=== PATIENT | female | born 1935 | race African-American/Black ===

== ENCOUNTER 2017-04-29 22:13 | Inpatient (IN) ==
[2017-04-29] MEDS ORDERED: SODIUM CHLORIDE 0.9% 500 ML IV STA (22:56)
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
[2017-04-29 23:31] LABS: Basophils % 0.4 % (0.0-0.8); Eosinophils # 0.1 10*3/uL (0.0-0.87); Hematocrit 41.3 VOL% (35.7-47.0); Hemoglobin 13.8 GM/DL (12.0-16.0); Immature Granulocytes % 0.4 %; Immature Granulocytes Absolute 0.03 #; Lymphocytes # 0.7 10*3/uL (1.4-4.0); Lymphocytes % 8.7 % (21.3-54.2); Mean Corpuscular HGB Conc 33.4 GM/DL (32-36); Mean Corpuscular Hemoglobin 29 PG (27-34); Mean Corpuscular Volume 86.2 FL (87-102); Mean Platelet Volume 11.1 FL (9.6-12.0); Monocytes # 0.6 10*3/uL (0.11-0.8); Monocytes % 7.2 % (1.7-12.7); Neutrophils # 6.3 10*3/uL (1.4-7.4); Neutrophils % 82.3 % (38.7-73.9); Platelet Count 163 T/CUMM (130-400); Red Blood Count 4.79 MC/CUMM (3.8-5.5); Red Cell Distribution Width 14.3 % (9.3-17.3); White Blood Count 7.7 T/CUMM (4-12)
[2017-04-29 23:56] LABS: Ammonia 24 UMOL/L (11-32)
[2017-04-30 00:04] LABS: Alanine Aminotransferase 14 U/L (13-56); Albumin 3.1 G/DL (3.4-5.0); Alkaline Phosphatase 86 U/L (45-117); Amylase 16 U/L (25-115); Aspartate Amino Transferase 14 U/L (0-37); Blood Urea Nitrogen 8 MG/DL (7-18); Calcium 8.7 MG/DL (8.5-10.1); Glucose 86 MG/DL (74-106); Osmolality,Calculated 271.7 MOS/KG (273-304); Potassium 2.8 MMOL/L (3.5-5.1); Sodium 138 MMOL/L (136-145); Troponin I Only < 0.015 NG/ML (0.00-0.045)
[2017-04-30] MEDS ORDERED: POTASSIUM BICARB EFFERVESCENT 25 MEQ TABLET PO ONE ×2 (00:23→00:42)
[2017-04-30] MEDS ORDERED: METOCLOPRAMIDE 10 MG/2 ML VIAL IV STA (00:32)
[2017-04-30] MEDS ORDERED: LEVOFLOXACIN INJ 750 MG in PREMIX 1 EACH IV STA (00:32)
[2017-04-30] MEDS ORDERED: ALBUTEROL/IPRATROPIUM 3 ML NEB RESP TX STA (00:32)
[2017-04-30] MEDS ORDERED: hydrALAZINE 20 MG/1 ML VIAL IV STA (00:36)
[2017-04-30] MEDS ORDERED: hydrALAZINE 20 MG/1 ML VIAL ONE (00:41)
[2017-04-30] MEDS ORDERED: METOCLOPRAMIDE 10 MG/2 ML VIAL ONE (00:41)
[2017-04-30] MEDS ORDERED: LEVOFLOXACIN INJ 150 ML IV ONE (00:41)
[2017-04-30 01:02] LABS: Apearance,Urine CLOUDY (Clear); Bacteria,Urine Few /HPF (Few); Bilirubin,Urine Negative (Negative); Blood, Urine Moderate mg/dL (Negative); Glucose,Urine (UA) Negative (Negative); Ketones,Urine Negative (Negative); Mucus,Urine Occasional /LPF (Occasional); Nitrite,Urine Negative (Negative); Protein,Urine Negative; RBC,Urine 4 /HPF (0-4); Squamous Epithelial Cell,Urine Occasional /HPF (0-10); Urine Color Yellow (Yellow); Urine Specific Gravity 1.011 (1.001-1.035); WBC,Urine 9 /HPF (0-6)
[2017-04-30] MEDS ORDERED: DILTIAZEM 50 MG/10 ML VIAL IV ONE (01:40)
[2017-04-30] MEDS ORDERED: DILTIAZEM 50 MG/10 ML VIAL IV STA (01:41)
[2017-04-30] MEDS ORDERED: DILTIAZEM 100 MG VIAL.ADD IV ONE (01:41)
[2017-04-30] MEDS ORDERED: SODIUM CHLORIDE 0.9% 100 ML IV ONE (01:42)
[2017-04-30] MEDS: DILTIAZEM INJ 100 MG in SODIUM CHLORIDE 0.9% 100 ML IV SCH (02:14)
[2017-04-30] MEDS ORDERED: ACETAMINOPHEN 325 MG TABLET PO PRN (02:15)
[2017-04-30] MEDS ORDERED: SODIUM CHLORIDE 0.9% 500 ML IV STA (02:22)
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
[2017-04-30] MEDS: cefTRIAXone 1,000 MG in SODIUM CHLORIDE 0.9% 100 ML IV SCH (05:30)
[2017-04-30 06:35] LABS: Calcium 8.8 MG/DL (8.5-10.1); Osmolality,Calculated 275.4 MOS/KG (273-304); Potassium 3.3 MMOL/L (3.5-5.1)
--- NOTE | 2017-04-30 07:14 | EKG Report ---
Stationary ECG Study [facility] ER Test Date: 04/29/2017 11:31:36 PM Pat Name: MARIBEL HUNT Department: Room: 276 Gender: F Chemical Operator: : [id number] Requested by: Otoniel Leigh Order Number: [id number] Reading MD: LINDA POP Intervals [place] Rate: 100 P: 999 [place]: 0 QRS: 35 QRSD: 93 T: 265 QT: 342 QTc: 399 Interpretive Statements ATRIAL FIBRILLATION WITH RAPID VENTRICULAR RESPONSE Electronically Signed On 05-01-17 15:54:29 CDT by LINDA POP [email or web address]
[2017-04-30] MEDS: ALBUTEROL/IPRATROPIUM 3 ML NEB RESP TX SCH ×4 (08:05→18:55)
[2017-04-30] MEDS: LACTULOSE 20 GM/30 ML UDCUP PO SCH ×2 (08:19→21:38)
[2017-04-30] MEDS: APIXABAN 2.5 MG TABLET PO SCH ×2 (08:19→21:38)
--- NOTE | 2017-04-30 08:22 | CT Report ---
CT head/brain wo con Indication: Altered mental status. Comparison: None. Technique: CT of the brain was performed without administration of intravenous contrast. The CT examination was performed using one or more of the following dose reduction techniques: Automatic exposure control, adjustment of the mA and kV according to patient size, use of acute or iterative reconstruction techniques. Findings: There is no evidence of acute intracranial mass, hemorrhage, or infarction. Generalized cerebral atrophy is present. Changes of atrophy are prominent. Areas of decreased attenuation within the periventricular white matter and cerebral white matter are present which could be compatible with microvascular ischemia. The basal cisterns are patent. No significant abnormality is demonstrated to involve the posterior fossa or cerebellum. Orbits and globes demonstrate no evidence of significant pathology. The paranasal sinuses are clear. No significant abnormality is demonstrated to involve the mastoid air cells. The calvarium and overlying soft tissues demonstrate no evidence of acute pathology. Impression: 1. No CT evidence of acute intracranial pathology. 2. Advanced generalized atrophy as well as findings compatible with microvascular ischemia are demonstrated. 04/30/2017 8:18 AM PROCEDURE INTERPRETED AT [facility] DEPARTMENT OF RADIOLOGY Final Report Signed by: Dr. Stefan Madera
--- NOTE | 2017-04-30 08:23 | XRay Report ---
XR abdomen 2V Indication: Abdominal pain. Comparison: Abdominal series 10/28/2012 Technique: Flat and erect images of the abdomen were performed. Findings: Lung bases are clear. Heart size is borderline to minimally enlarged. There is been prior cholecystectomy. No organomegaly is present. Gas is distributed throughout large and small bowel loops in nonspecific pattern. No extraluminal air is demonstrated. Bones and soft tissues are grossly unremarkable. Multiple calcifications noted bilaterally within the pelvis likely reflect phleboliths formation. If clinical concern for distal ureteral stone exists, correlation with urinalysis is recommended. Impression: 1. No specific abnormality of the bowel gas pattern is demonstrated. 2. Multiple punctate calcifications within the pelvis likely phlebolith formation. Distal ureteral stones would be difficult to exclude and correlation with urinalysis is recommended. 04/30/2017 8:19 AM PROCEDURE INTERPRETED AT [facility] DEPARTMENT OF RADIOLOGY Final Report Signed by: Dr. Stefan Madera
--- NOTE | 2017-04-30 08:24 | XRay Report ---
XR chest 1V portable Indication: Abdominal pain. Comparison: Chest x-ray 01/26/2015 Technique: Portable AP chest was performed. Findings: Heart size is minimally enlarged. Pulmonary vasculature appears within normal limits. No significant abnormality of the mediastinal contours demonstrated. [place] nodular density lower right chest was not present on comparison study. This measures up to 13.8 mm and may reflect bony lesion in the orientation and presents overlying posterior-lateral right ninth rib Lungs are otherwise clear. Bones and soft tissues demonstrate no significant abnormalities. Impression: 1. Mild cardiomegaly appears stable. 2. Focal density lower right chest overlying the posterior right ninth rib has different considerations including focal atelectasis, osseous lesion, or pulmonary nodule. PA/lateral chest x-ray is recommended for further evaluation. 04/30/2017 8:20 AM PROCEDURE INTERPRETED AT [facility] DEPARTMENT OF RADIOLOGY Final Report Signed by: Dr. Stefan Madera
[2017-04-30] MEDS: AZITHROMYCIN INJ 500 MG in SODIUM CHLORIDE 0.9% 250 ML IV SCH (08:26)
[2017-04-30] MEDS ORDERED: SULFAMETHOX/TRIMETHOPRIM 800-160 MG TABLET PO SCH (09:00)
--- NOTE | 2017-04-30 11:18 | Hospitalist Progress Note ---
Assessment and Plan - Time spent with patient Time spent with patient: Greater than 30 minutes (1) Atrial fibrillation with RVR Status: Acute Current Visit: Yes (2) Fecal impaction Status: Acute Current Visit: Yes (3) Pneumonia Status: Acute Assessment and plan: Start oral metoprolol and gradually wean off Cardizem infusion Ask cardiology to see in the morning. She is currently on oral anticoagulation, continue the same. Soapsuds enema to continue on to response. If this fails, will do D70 solution rectally. Continue empiric antibiotics for possible pneumonia. I discussed patient's status with daughter at bedside DVT prophylaxis: On active anticoagulation therapy. Current Visit: Yes Hospitalist: Subjective Interval history: Elderly woman admitted overnight for abdominal pain suspected to be due to constipation, also in atrial fibrillation which required cardioversion with IV Cardizem, rate has improved. She is currently on IV infusion Cardizem at a rate 5. Blood pressures are stable. No fever. Has had some bowel movement in response to soapsuds enema 1 I discussed with daughter at bedside. Exam - Constitutional Vitals: Period Temp Pulse Resp BP Sys/Lovelace Pulse Ox Last 24 Hr 97.6 F-99.7 F 62-168 16-20 98-176/56-133 95-100 General appearance: no acute distress Exam: General appearance: other (Patient appear chronically ill and lethargic) - Head Head exam: Present: normal inspection, normocephalic, atraumatic - Eye Eye exam: Present: EOMI Pupils: Present: ALEC - Respiratory Respiratory exam: Present: other. Absent: accessory muscle use (Equal air entry bilaterally with decreased sound at the bases bilaterally due to poor inspiratory effort) - Cardiovascular Cardiovascular exam: Present: irregular rhythm, tachycardia - GI/Abdominal GI/Abdominal exam: Present: normal bowel sounds, soft. Absent: distended, tenderness, rebound - Extremities Exam Extremities exam: Present: edema (Bilateral mild edema of lower extremities. Chronic skin changes from venous stasis) - Head Head exam: Present: normocephalic, atraumatic - Respiratory Respiratory exam: Present: clear to auscultation bilaterally. Absent: rales, rhonchi - Cardiovascular Cardiovascular exam: Present: irregular rhythm. Absent: JVD - GI/Abdominal GI/Abdominal exam: Present: hypoactive bowel sounds, soft. Absent: ascites, tenderness - Neurological Exam Neurological exam: Present: other (Unable to assess because of baseline mental status) - Psychiatric Psychiatric exam: Present: other (Unable to assess because of baseline mental status) - Skin Skin exam: Present: normal color, warm, dry Results - Labs CBC & BMP: 04/29/17 23:08 04/30/17 05:05 Lab Results: I have reviewed the past 24 hour labs Quality Measures - VTE Contraindication to Pharmacological VTE Prophylaxis: Already on Theraputic Agent , No Prophylaxis Needed
[2017-04-30] MEDS: METOPROLOL TARTRATE 25 MG TABLET PO SCH (21:36)
[2017-05-01] MEDS: DILTIAZEM INJ 100 MG in SODIUM CHLORIDE 0.9% 100 ML IV SCH (03:58)
[2017-05-01] MEDS: cefTRIAXone 1,000 MG in SODIUM CHLORIDE 0.9% 100 ML IV SCH (05:14)
[2017-05-01] MEDS: AZITHROMYCIN INJ 500 MG in SODIUM CHLORIDE 0.9% 250 ML IV SCH (05:30)
[2017-05-01] MEDS: ALBUTEROL/IPRATROPIUM 3 ML NEB RESP TX SCH ×4 (07:49→19:35)
[2017-05-01] MEDS: METOPROLOL TARTRATE 25 MG TABLET PO SCH (08:29)
[2017-05-01] MEDS: LACTULOSE 20 GM/30 ML UDCUP PO SCH ×2 (08:32→21:13)
[2017-05-01] MEDS: APIXABAN 2.5 MG TABLET PO SCH ×2 (08:32→21:13)
--- NOTE | 2017-05-01 09:29 | Hospitalist Progress Note ---
Assessment and Plan - Time spent with patient Time spent with patient: Greater than 30 minutes (1) Atrial fibrillation with RVR Status: Acute Current Visit: Yes (2) Fecal impaction Status: Acute Current Visit: Yes (3) Pneumonia Status: Acute Assessment and plan: Continue oral metoprolol and discontinue Cardizem infusion Ask cardiology to see. Continue her oral anticoagulation. Since no response to soapsuds enema we will repeat KUB to ensure that there is stool that requires evacuation. If KUB confirms constipation with stool impaction, will do D70 solution rectally. Continue Rocephin which will cover her acute cystitis due to gram-negative rods. I suspect her gram-positive bacteremia may be due to contamination but will be safe to start empiric vancomycin and repeat blood cultures. Discontinue if culture comes back negative Repeat blood cultures Supplement potassium, check BMP stat, check magnesium. I discussed patient's status with daughter at bedside DVT prophylaxis: On active anticoagulation therapy. Current Visit: Yes (4) Bacteremia due to Gram-positive bacteria Status: Acute Current Visit: Yes (5) Hypokalemia Status: Acute Current Visit: Yes (6) Cystitis Status: Acute Current Visit: Yes Hospitalist: Subjective Interval history: Gram-positive rods in urine greater than 100,000 CFU, identification and sensitivity is pending. Blood culture positive for gram-positive cocci culture and a 1 out of 2 positive , this may be contamination since she has no obvious features of sepsis. There has been no good response to enema so far, has been tolerating oral feeds. No abdominal pain or vomiting reported. No fever Mild hypokalemia from yesterday Exam - Constitutional Vitals: Period Temp Pulse Resp BP Sys/Lovelace Pulse Ox Last 24 Hr 96.9 F-98.4 F 67-97 14-20 98-165/61-80 92-100 Exam: General appearance: - Head Head exam: Present: normal inspection, normocephalic, atraumatic - Eye Eye exam: Present: EOMI Pupils: Present: ALEC - Respiratory Respiratory exam: Present: other. Absent: accessory muscle use (Equal air entry bilaterally with decreased sound at the bases bilaterally due to poor inspiratory effort) - Cardiovascular Cardiovascular exam: Present: irregular rhythm, tachycardia - GI/Abdominal GI/Abdominal exam: Present: normal bowel sounds, soft. Absent: distended, tenderness, rebound - Extremities Exam Extremities exam: Present: edema (Bilateral mild edema of lower extremities. Chronic skin changes from venous stasis) Results - Labs CBC & BMP: 04/29/17 23:08 04/30/17 05:05 Lab Results: I have reviewed the past 24 hour labs Quality Measures - VTE Contraindication to Pharmacological VTE Prophylaxis: Already on Theraputic Agent , No Prophylaxis Needed
--- NOTE | 2017-05-01 10:30 | XRay Report ---
XR KUB Indication: Constipation. Comparison: Flat and right images of the abdomen 04/30/2017. CT urogram 04/21/2017. Technique: Supine AP image of the abdomen was obtained. Findings: A distended gas-filled viscus within the central and right abdomen is demonstrated. There does appear to be air within the rectum and right hemicolon. This is favored to represent large bowel, probably redundant sigmoid colon. Surgical absence of the gallbladder is demonstrated. Small bowel gas pattern is nonspecific in appearance. Impression: 1. Compared to CT of abdomen and pelvis performed 04/21/2017, configuration of the sigmoid colon is unchanged. The sigmoid colon remains distended and now is filled with air. Bowel gas pattern is otherwise nonspecific in appearance and demonstrates no abnormality. 05/01/2017 10:25 AM PROCEDURE INTERPRETED AT [facility] DEPARTMENT OF RADIOLOGY Final Report Signed by: Dr. Stefan Madera
[2017-05-01] MEDS: VANCOMYCIN INJ 1,750 MG in SODIUM CHLORIDE 0.9% 500 ML IV SCH ×2 (10:33→23:38)
[2017-05-01 10:40] LABS: Calcium 8.6 MG/DL (8.5-10.1); Osmolality,Calculated 277.4 MOS/KG (273-304)
[2017-05-01] MEDS: POTASSIUM CHLORIDE 20 MEQ TABLET PO PRN ×4 (11:36→17:48)
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
[2017-05-01] MEDS: SOTALOL 80 MG TABLET PO SCH ×2 (13:40→21:13)
--- NOTE | 2017-05-01 16:54 | ECHO Report ---
Cachorro Moss Exam Date: 05/01/2017 13:20 Referring Physician: Technologist: Lanie Hall [facility] Age: 81 Ht (in): 62 Wt (lb): 270 Gender: F Exam Location: [facility] Echo Indications: Atrial fibrillation, Shortness of breath, Altered mental status, Weakness, Essential (primary) hypertension, Dementia, UTI BP: 127 / 85 HR: 102 Rhythm: Atrial fibrillation Technical Quality: Fair IMPRESSIONS Left ventricular ejection fraction is estimated at 55 %. Normal right ventricular size. Moderately increased right atrial size. Moderately increased left atrial size. Mildly thickened mitral valve. Trace mitral valve regurgitation. Aortic valve sclerosis. Trace aortic valve regurgitation. [id number] tricuspid valve regurgitation. [id number]. Pulmonic valve not well visualized. Normal pericardium without effusion. Normal ascending aorta dimension. MEASUREMENTS (Male / Female) Normal Values 2D ECHO LV Diastolic Diameter PLAX 3.4 cm 4.2 - 5.9 / 3.9 - 5.3 cm LV Systolic Diameter PLAX 2.6 cm LV Fractional Shortening PLAX 24.2 % IVS Diastolic Thickness 1.1 cm 0.6 - 1.0 / 0.6 - 0.9 cm LVPW Diastolic Thickness 1.1 cm 0.6 - 1.0 / 0.6 - 0.9 cm RV Internal Dim ED PLAX 2.8 cm Aortic Root Diameter 3.0 cm LA Systolic Diameter LX 4.8 cm 3.0 - 4.0 / 2.7 - 3.8 cm DOPPLER TR Peak Velocity 328.0 cm/s TR Peak Gradient 43.0 mmHg FINDINGS Left Ventricle . Left ventricular ejection fraction is estimated at 55 %. Right Ventricle Normal right ventricular size. Right Atrium Moderately increased right atrial size. Left Atrium Moderately increased left atrial size. Mitral Valve Mildly thickened mitral valve. Trace mitral valve regurgitation. Aortic Valve Aortic valve sclerosis. Trace aortic valve regurgitation. Tricuspid Valve Morphologically normal tricuspid valve. Parcrlnz-ca-[id number] tricuspid valve regurgitation. .[id number]. Pulmonic Valve Pulmonic valve not well visualized. Pericardium Normal pericardium without effusion. Aorta Normal ascending aorta dimension. Abhay Sevilla (Electronically Signed) Final Date: 01 May 2017 16:53
[2017-05-02 05:12] LABS: Basophils # 0.1 10*3/uL (0.0-0.2); Basophils % 0.6 % (0.0-0.8); Eosinophils # 0.2 10*3/uL (0.0-0.87); Eosinophils % 2.6 % (0.00-10.9); Hemoglobin 12.8 GM/DL (12.0-16.0); Immature Granulocytes % 0.4 %; Immature Granulocytes Absolute 0.03 #; Lymphocytes # 1.8 10*3/uL (1.4-4.0); Mean Corpuscular HGB Conc 32.8 GM/DL (32-36); Mean Corpuscular Hemoglobin 29 PG (27-34); Mean Corpuscular Volume 86.9 FL (87-102); Mean Platelet Volume 11.8 FL (9.6-12.0); Monocytes # 0.7 10*3/uL (0.11-0.8); Monocytes % 8.9 % (1.7-12.7); Neutrophils # 5.2 10*3/uL (1.4-7.4); Neutrophils % 65.5 % (38.7-73.9); Platelet Count 170 T/CUMM (130-400); Red Blood Count 4.49 MC/CUMM (3.8-5.5); Red Cell Distribution Width 14.6 % (9.3-17.3)
[2017-05-02] MEDS: AZITHROMYCIN INJ 500 MG in SODIUM CHLORIDE 0.9% 250 ML IV SCH (05:30)
[2017-05-02 05:43] LABS: Albumin 2.8 G/DL (3.4-5.0); Bilirubin,Total 1.3 MG/DL (0.2-1.0); Calcium 8.8 MG/DL (8.5-10.1); Osmolality,Calculated 276.4 MOS/KG (273-304); Potassium 3.6 MMOL/L (3.5-5.1); Total Protein 6.2 G/DL (6.4-8.3)
[2017-05-02] MEDS: cefTRIAXone 1,000 MG in SODIUM CHLORIDE 0.9% 100 ML IV SCH (05:49)
[2017-05-02] MEDS: ALBUTEROL/IPRATROPIUM 3 ML NEB RESP TX SCH ×4 (07:03→19:10)
[2017-05-02] MEDS: APIXABAN 2.5 MG TABLET PO SCH ×2 (09:12→21:46)
[2017-05-02] MEDS: LACTULOSE 20 GM/30 ML UDCUP PO SCH ×2 (09:12→21:46)
[2017-05-02] MEDS: SOTALOL 80 MG TABLET PO SCH ×2 (09:12→21:46)
[2017-05-02] MEDS: VANCOMYCIN INJ 1,750 MG in SODIUM CHLORIDE 0.9% 500 ML IV SCH (11:02)
--- NOTE | 2017-05-02 11:44 | Hospitalist Progress Note ---
Assessment and Plan - Time spent with patient Time spent with patient: Greater than 30 minutes (1) Atrial fibrillation with RVR Status: Acute Current Visit: Yes (2) Fecal impaction Status: Acute Current Visit: Yes (3) Pneumonia Status: Acute Assessment and plan: Cardiology has changed to Sotalol, HR noted, continuing her oral anticoagulation. KUB negative and does not confirm constipation and she is also tolerating oral feeds well so far. Continue Rocephin which will cover her gram-positive bacteremia which I suspect is contamination, DC Vancomycin since MRSA negative , follow final repeat blood cultures and if it comes back negative, may be able to DC in a.m Supplement potassium, Monitor BMP DVT prophylaxis: On active anticoagulation therapy. Likely DC in a.m if HR remains stable and cultures are negative Current Visit: Yes (4) Bacteremia due to Gram-positive bacteria Status: Acute Current Visit: Yes (5) Hypokalemia Status: Acute Current Visit: Yes (6) Cystitis Status: Acute Current Visit: Yes Hospitalist: Subjective Interval history: 81-year-old lady with dementia, asthma chronic atrial fibrillation she is admitted for suspected pneumonia, abdominal pain suspected to be due to constipation and fecal impaction, atrial fibrillation. Cultures sent on admission came back positive for gram-positive cocci and we started on empiric antibiotics while repeat blood cultures were sent. She went back into A. fib fibrillation with rapid ventricular response during her hospital stay requiring IV Cardizem, she was gradually weaned of CDZ and she was started on sotalol by cardiology. This morning, her abdominal pain had subsided, she is tolerating oral feeds. KUB does not suggest any constipation or fecal impaction by report. We do not have the final report on repeat blood cultures yet. Exam - Constitutional Vitals: Period Temp Pulse Resp BP Sys/Lovelace Pulse Ox Last 24 Hr 96.7 F-99.2 F 65-125 16-20 114-132/68-98 92-100 Exam: General appearance: - Head Generally more awake Head exam: Present: normal inspection, normocephalic, atraumatic - Eye Eye exam: Present: EOMI Pupils: Present: ALEC - Respiratory Respiratory exam: Present: other. Absent: accessory muscle use (Equal air entry bilaterally with decreased sound at the bases bilaterally due to poor inspiratory effort) - Cardiovascular Cardiovascular exam: Present: irregular rhythm, tachycardia - GI/Abdominal GI/Abdominal exam: Present: normal bowel sounds, soft. Absent: distended, tenderness, rebound - Extremities Exam Extremities exam: Present: edema (Bilateral mild edema of lower extremities. Chronic skin changes from venous stasis) Results - Labs CBC & BMP: 05/02/17 04:11 05/02/17 04:11 Lab Results: I have reviewed the past 24 hour labs - Diagnostic Findings Procedure: KUB x-ray: report reviewed by me, image reviewed by me Quality Measures - VTE Contraindication to Pharmacological VTE Prophylaxis: Already on Theraputic Agent , No Prophylaxis Needed
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
--- NOTE | 2017-05-02 17:06 | EKG Report ---
Stationary ECG Study [facility] Test Date: 05/02/2017 5:06:18 PM Pat Name: MARIBEL HUNT Department: Room: 276 Gender: F Travel Attendants: SILAS : 1935 Requested by: Vasyl Pierre Order Number: [id number] Reading MD: KHUSHBOO PENA Intervals [place] Rate: 105 P: 999 [place]: 0 QRS: 10 QRSD: 91 T: -29 QT: 342 QTc: 403 Interpretive Statements ATRIAL FIBRILLATION WITH RAPID VENTRICULAR RESPONSE at 105 bpm NONSPECIFIC T-WAVE ABNORMALITY ABNORMAL RHYTHM ECG Electronically Signed On 05-03-17 08:18:51 CDT by KHUSHBOO PENA [email or web address]
[2017-05-03] MEDS: cefTRIAXone 1,000 MG in SODIUM CHLORIDE 0.9% 100 ML IV SCH (06:10)
[2017-05-03] MEDS: AZITHROMYCIN INJ 500 MG in SODIUM CHLORIDE 0.9% 250 ML IV SCH (06:40)
[2017-05-03] MEDS: ALBUTEROL/IPRATROPIUM 3 ML NEB RESP TX SCH ×4 (07:14→20:42)
--- NOTE | 2017-05-03 08:03 | EKG Report ---
Stationary ECG Study [facility] Test Date: 05/03/2017 8:00:47 AM Pat Name: MARIBEL HUNT Department: Room: 276 Gender: F Capacity Analyst: ZOHREH : 1935 Requested by: Vasyl Pierre Order Number: [id number] Reading MD: KHUSHBOO PENA Intervals [place] Rate: 101 P: 999 [place]: 0 QRS: 13 QRSD: 97 T: -19 QT: 356 QTc: 414 Interpretive Statements ATRIAL FIBRILLATION WITH RAPID VENTRICULAR RESPONSE at 101 bpm NONSPECIFIC T-WAVE ABNORMALITY Electronically Signed On 05-03-17 08:27:08 CDT by KHUSHBOO PENA [email or web address]
[2017-05-03] MEDS: SOTALOL 80 MG TABLET PO SCH ×2 (09:24→20:51)
[2017-05-03] MEDS: APIXABAN 2.5 MG TABLET PO SCH ×2 (09:24→20:51)
[2017-05-03] MEDS: LACTULOSE 20 GM/30 ML UDCUP PO SCH ×2 (09:25→20:50)
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
--- NOTE | 2017-05-03 16:51 | Hospitalist Progress Note ---
Assessment and Plan (1) Atrial fibrillation with RVR Status: Resolved Current Visit: Yes (2) Fecal impaction Status: Resolved Current Visit: Yes (3) Pneumonia Status: Acute Assessment and plan: Continue Rocephin and Zithromax. Follow-up repeat chest x-ray. Current Visit: Yes Qualifiers: Pneumonia type: due to unspecified organism Lung location: unspecified part of lung (4) Bacteremia due to Gram-positive bacteria Status: Acute Assessment and plan: Follow-up final cultures. Rule out skin contaminant. Current Visit: Yes (5) Cystitis Status: Acute Assessment and plan: Continue treatment for acute UTI with Rocephin. Culture positive for E. coli. Current Visit: Yes (6) Dementia Status: Chronic Current Visit: Yes (7) Hypertension Status: Chronic Current Visit: Yes Qualifiers: Hypertension type: essential hypertension Qualified Code(s): I10 - Essential (primary) hypertension (8) Bedridden Status: Chronic Current Visit: Yes Hospitalist: Subjective Interval history: Ms. Moss is receiving IV antibiotic treatment for UTI and pneumonia. Fecal impaction has resolved. She is slowly improving. Her family was present at the time of my visit. They request advancing her diet from pured to improve her appetite. Exam - Constitutional Vitals: Period Temp Pulse Resp BP Sys/Lovelace Pulse Ox Last 24 Hr 96.6 F-98.9 F 82-109 12-20 107-140/61-94 95-100 Exam: Constitutional System: No distress. No tremulousness. Head: Normocephalic, atraumatic. Ears, Nose and Throat System: No pain or tenderness. No epistaxis or discharge Eyes System: Pupils equal, round, and reactive. Extraocular muscles intact. Neck: Supple, without adenopathy, No jugular venous distention. No thyromegaly, neck mass, or prior surgery apparent. Respiratory System: Chest clear to auscultation. Cardiovascular System: Heart with regular rate and rhythm. GI System: Abdomen soft, nontender. Normo active bowel sounds present. Musculoskeletal System: limbs with no pedal edema. Full distal pulses. Neurological System: No discernable sensory deficit. No aphasia Psychiatric System: Conversation is rational Results - Labs CBC & BMP: 05/02/17 04:11 05/02/17 04:11 Lab Results: I have reviewed the past 24 hour labs Quality Measures - VTE Contraindication to Pharmacological VTE Prophylaxis: Already on Theraputic Agent , No Prophylaxis Needed
[2017-05-04] MEDS: cefTRIAXone 1,000 MG in SODIUM CHLORIDE 0.9% 100 ML IV SCH (04:10)
[2017-05-04] MEDS: AZITHROMYCIN INJ 500 MG in SODIUM CHLORIDE 0.9% 250 ML IV SCH (05:51)
--- NOTE | 2017-05-04 07:37 | EKG Report ---
Stationary ECG Study [facility] Test Date: 05/04/2017 7:35:47 AM Pat Name: MARIBEL HUNT Department: Room: 276 Gender: F Lodge Attendant: ZOHREH : 1935 Requested by: Vasyl Pierre Order Number: [id number] Reading MD: JONY FOWLER Intervals [place] Rate: 102 P: 999 TX: 0 QRS: 45 QRSD: 93 T: 0 QT: 349 QTc: 408 Interpretive Statements ATRIAL FIBRILLATION WITH RAPID VENTRICULAR RESPONSE ABNORMAL RHYTHM ECG Electronically Signed On 05-04-17 13:22:04 CDT by JONY FOWLER [id number]
[2017-05-04] MEDS: ALBUTEROL/IPRATROPIUM 3 ML NEB RESP TX SCH ×4 (07:45→20:20)
--- NOTE | 2017-05-04 07:50 | XRay Report ---
XR chest 1V portable Indication: Follow-up pneumonia Comparison: Chest x-ray dated April 30, 2017 Technique: Single frontal view of the chest. Findings: Continued cardiomegaly. Continued right basilar atelectasis/consolidation. Low lung volumes. Visualized osseous and surrounding soft tissue structures appear grossly unchanged. Diffuse osteopenia. IMPRESSION: No significant interval change. PROCEDURE INTERPRETED AT [facility] DEPARTMENT OF RADIOLOGY Final Report Signed by: Dr Loi Hargrove
[2017-05-04] MEDS: SOTALOL 80 MG TABLET PO SCH ×2 (08:38→21:04)
[2017-05-04] MEDS: APIXABAN 2.5 MG TABLET PO SCH ×2 (08:38→21:04)
[2017-05-04] MEDS: LACTULOSE 20 GM/30 ML UDCUP PO SCH ×2 (08:39→21:04)
--- NOTE | 2017-05-04 10:52 | Hospitalist Progress Note ---
Assessment and Plan (1) Pneumonia Status: Acute Assessment and plan: Continue Rocephin and Zithromax. repeat chest x-ray reviewed showing no worsening. Current Visit: Yes Qualifiers: Pneumonia type: due to unspecified organism Lung location: unspecified part of lung (2) Atrial fibrillation with RVR Status: Resolved Current Visit: Yes (3) Fecal impaction Status: Resolved Current Visit: Yes (4) Bacteremia due to Gram-positive bacteria Status: Acute Assessment and plan: Follow-up final cultures. Rule out skin contaminant. Current Visit: Yes (5) Cystitis Status: Acute Assessment and plan: Continue treatment for acute UTI with Rocephin. Culture positive for E. coli. Current Visit: Yes (6) Dementia Status: Chronic Current Visit: Yes (7) Hypertension Status: Chronic Current Visit: Yes Qualifiers: Hypertension type: essential hypertension Qualified Code(s): I10 - Essential (primary) hypertension (8) Bedridden Status: Chronic Current Visit: Yes Hospitalist: Subjective Interval history: Patient seen and examined. No acute events overnight. Case discussed with nursing staff. Labs reviewed. Daughter at the bedside. Patient looks and feels better today. They report improved appetite and oral intake. Plan for discharge home tomorrow. Exam - Constitutional Vitals: Period Temp Pulse Resp BP Sys/Lovelace Pulse Ox Last 24 Hr 96.8 F-98.5 F 56-103 14-20 107-141/66-93 97-100 Exam: Constitutional System: No distress. No tremulousness. Head: Normocephalic, atraumatic. Ears, Nose and Throat System: No pain or tenderness. No epistaxis or discharge Eyes System: Pupils equal, round, and reactive. Extraocular muscles intact. Neck: Supple, without adenopathy, No jugular venous distention. No thyromegaly, neck mass, or prior surgery apparent. Respiratory System: Chest clear to auscultation. Cardiovascular System: Heart with regular rate and rhythm. GI System: Abdomen soft, nontender. Normo active bowel sounds present. Musculoskeletal System: limbs with no pedal edema. Full distal pulses. Neurological System: No discernable sensory deficit. No aphasia Psychiatric System: Conversation is rational Results - Labs CBC & BMP: 05/02/17 04:11 05/02/17 04:11 Lab Results: I have reviewed the past 24 hour labs Quality Measures - VTE Contraindication to Pharmacological VTE Prophylaxis: Already on Theraputic Agent , No Prophylaxis Needed
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
[2017-05-04] MEDS ORDERED: MAGNESIUM CITRATE 300 ML BOTTLE PO ONE (17:08)
--- NOTE | 2017-05-04 17:57 | XRay Report ---
XR KUB Indication: Constipation Comparison: Abdominal series 05/01/2017. Technique: Supine AP image of the abdomen was obtained. Findings: Bowel gas pattern demonstrates no specific abnormality. Gas-filled loops of large and small bowel are present. Sigmoid colon is somewhat less prominent than on comparison study. Gallbladder remains surgically absent. Lung bases are clear. Impression: 1. Little change in distribution of bowel gas has occurred since comparison study. 05/04/2017 5:54 PM PROCEDURE INTERPRETED AT [facility] DEPARTMENT OF RADIOLOGY Final Report Signed by: Dr. Stefan Madera
[2017-05-05 04:47] LABS: Basophils % 0.4 % (0.0-0.8); Eosinophils # 0.2 10*3/uL (0.0-0.87); Eosinophils % 1.4 % (0.00-10.9); Immature Granulocytes % 0.4 %; Immature Granulocytes Absolute 0.04 #; Lymphocytes # 1.2 10*3/uL (1.4-4.0); Lymphocytes % 11.3 % (21.3-54.2); Mean Corpuscular HGB Conc 32.5 GM/DL (32-36); Mean Corpuscular Hemoglobin 28 PG (27-34); Mean Corpuscular Volume 87.3 FL (87-102); Mean Platelet Volume 11.6 FL (9.6-12.0); Monocytes # 0.6 10*3/uL (0.11-0.8); Monocytes % 5.1 % (1.7-12.7); Neutrophils % 81.4 % (38.7-73.9); Platelet Count 194 T/CUMM (130-400); Red Blood Count 4.58 MC/CUMM (3.8-5.5); Red Cell Distribution Width 13.9 % (9.3-17.3)
[2017-05-05 05:21] LABS: Calcium 8.5 MG/DL (8.5-10.1); Magnesium 2.3 MG/DL (1.8-2.4); Osmolality,Calculated 276.4 MOS/KG (273-304); Potassium 3.5 MMOL/L (3.5-5.1)
[2017-05-05] MEDS: cefTRIAXone 1,000 MG in SODIUM CHLORIDE 0.9% 100 ML IV SCH ×2 (06:27→08:06)
[2017-05-05] MEDS: ALBUTEROL/IPRATROPIUM 3 ML NEB RESP TX SCH ×2 (07:20→10:28)
--- NOTE | 2017-05-05 07:28 | EKG Report ---
Stationary ECG Study [facility] Test Date: 05/05/2017 7:28:29 AM Pat Name: MARIBEL HUNT Department: Room: 276 Gender: F Research Asst: DANISH : 1935 Requested by: Vasyl Pierre Order Number: [id number] Reading MD: DEMIAN TOVAR Intervals [place] Rate: 97 P: 999 MA: 0 QRS: 18 QRSD: 93 T: -29 QT: 373 QTc: 428 Interpretive Statements ATRIAL FIBRILLATION NONSPECIFIC T-WAVE ABNORMALITY ABNORMAL RHYTHM ECG Electronically Signed On 05-08-17 18:31:09 CDT by DEMIAN TOVAR [email or web address]
[2017-05-05 08:31] VITALS: BP 122/80
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
[2017-05-05] MEDS: SOTALOL 80 MG TABLET PO SCH (09:24)
[2017-05-05] MEDS: APIXABAN 2.5 MG TABLET PO SCH (09:25)
[2017-05-05] MEDS: AZITHROMYCIN INJ 500 MG in SODIUM CHLORIDE 0.9% 250 ML IV SCH (09:55)
[2017-05-05] MEDS: LACTULOSE 20 GM/30 ML UDCUP PO SCH (09:59)
== END 2017-05-05 14:30 | disposition home or self-care (01) | DRG 871 ==
LOC: N.ED 22:13 → SUATTDRO 04-30 02:15 → N.EDINP 04-30 02:15 → N.TELES 04-30 02:34
PROVIDERS: ADMIT Internal Medicine; ATTEND Family Medicine